=== PATIENT | male | born 1965 | race Caucasian/White ===

== ENCOUNTER 2023-07-24 18:54 | Emergency (ER) | payer MEDICAID ==
[~2023-07-24] VITALS: Ht 165.1 cm; Wt 86.2 kg
[~2023-07-24 18:54] MED LIST: HYDR-3980 PO; METR500T PO; SULF1TAB48 PO
[2023-07-24] MEDS ORDERED: HYDROCODONE/APAP 5-325MG TABLET PO ONE (20:00)
[2023-07-24 20:01] VITALS: BP 115/75; TEMP 98.2; O2SAT 98
== END 2023-07-24 20:01 | disposition home or self-care (01) ==
LOC: ER 18:56
DX: K61.1 Rectal abscess (principal); F17.210 Nicotine dependence, cigarettes, uncomplicated; Z79.899 Other long term (current) drug therapy
CPT/HCPCS: A4606; A4663